=== PATIENT | male | born 1960 | race Hispanic/Latino ===

== ENCOUNTER 2021-06-01 10:49 | Outpatient (CLI) | payer BC | END 2021-06-01 10:50 | disposition home or self-care (01) | LOC: LABHHL 10:49 | PROVIDERS: ATTEND Otolaryngology Otology & Neurotology | DX: J32.0 Chronic maxillary sinusitis (principal); J34.2 Deviated nasal septum; J33.9 Nasal polyp, unspecified | CPT/HCPCS: 88304; 88305; 88311 ==